=== PATIENT | male | born 2000 | race Caucasian/White ===

== ENCOUNTER 2022-09-01 16:44 | Emergency (ER) | payer MEDICAID ==
[~2022-09-01] VITALS: Ht 188 cm; Wt 65.9 kg
[2022-09-01 17:39] VITALS: BP 103/69
== END 2022-09-01 18:54 | disposition home or self-care (01) ==
LOC: ER 16:46
DX: S93.402A Sprain of unspecified ligament of left ankle, initial encounter (principal); X50.1XXA Overexertion from prolonged static or awkward postures, initial encounter; Y93.89 Activity, other specified; Y92.89 Other specified places as the place of occurrence of the external cause; Y99.8 Other external cause status
CPT/HCPCS: 73610; 99283; A6449

== ENCOUNTER 2024-04-19 10:07 | Emergency (ER) | payer SELFPAY ==
[~2024-04-19] VITALS: Ht 188 cm; Wt 62.3 kg
[2024-04-19] MEDS ORDERED: PRED10TA23 PO (11:32)
[2024-04-19] MEDS: predniSONE 20 mg tablet PO ONE (11:39)
[2024-04-19 11:42] VITALS: BP 122/74; PULSE 88; RESP 18; TEMP 98; O2SAT 98
== END 2024-04-19 11:43 | disposition home or self-care (01) ==
LOC: ER 10:07
DX: L23.7 Allergic contact dermatitis due to plants, except food (principal); Z79.899 Other long term (current) drug therapy
CPT/HCPCS: 99283; J7512

== ENCOUNTER 2025-02-18 22:36 | Emergency (ER) | payer SELFPAY ==
[~2025-02-18] VITALS: Ht 188 cm; Wt 65.9 kg
[2025-02-18 22:40] VITALS: BP 125/83
[2025-02-18 22:50] VITALS: PULSE 89; RESP 13; TEMP 98.2; O2SAT 98
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
== END 2025-02-18 23:25 ==
LOC: ER 22:36
DX: Z04.1 Encounter for examination and observation following transport accident (principal); V89.2XXA Person injured in unspecified motor-vehicle accident, traffic, initial encounter; Y93.89 Activity, other specified; Y92.410 Unspecified street and highway as the place of occurrence of the external cause; Y99.8 Other external cause status
CPT/HCPCS: 99283

== ENCOUNTER 2025-02-19 09:15 | Emergency (ER) | payer OTHER ==
[~2025-02-19] VITALS: Ht 188 cm; Wt 65.9 kg
[2025-02-19 09:27] VITALS: BP 151/73; PULSE 79; RESP 14; TEMP 97.8; O2SAT 97
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
== END 2025-02-19 10:58 | disposition home or self-care (01) ==
LOC: ER 09:15
DX: S01.112A Laceration without foreign body of left eyelid and periocular area, initial encounter (principal); S20.212A Contusion of left front wall of thorax, initial encounter; S60.212A Contusion of left wrist, initial encounter; S30.0XXA Contusion of lower back and pelvis, initial encounter; V89.2XXA Person injured in unspecified motor-vehicle accident, traffic, initial encounter; Y93.89 Activity, other specified; Y92.89 Other specified places as the place of occurrence of the external cause; Y99.8 Other external cause status
CPT/HCPCS: 99282